=== PATIENT | female | born 1970 | race Caucasian/White ===

== ENCOUNTER 2023-10-07 14:35 | Outpatient (CLI) | payer OTHER, SELFPAY ==
--- NOTE | 2023-10-07 14:30 | MM_ITS ---
WS: [id number] Bilateral screening 3D tomosynthesis digital mammogram, 10/07/2023 Clinical Data: SCREENING Comparison: None. Findings: The breast parenchymal pattern shows fibroglandular tissue. No spiculated masses or clustered calcifi cations are seen. There are no secondary signs of carcinoma. Impression: 1. Negative bilateral mammogram unchanged. 2. Recommend annual screening mammograms. MM/[place] [id number] BIRADS: 1-Negative FOLLOW UP: 1 Year Follow-up The CAD toolroom checker was used.
== END 2023-10-07 14:36 | disposition home or self-care (01) ==
LOC: MOBLMAM 14:40
PROVIDERS: PCP Nurse Practitioner Family; Visit Provider Nurse Practitioner Family
DX: Z12.31 Encounter for screening mammogram for malignant neoplasm of breast (principal)
CPT/HCPCS: 77063; 77067